=== PATIENT | male | born 1960 | race Hispanic/Latino ===

== ENCOUNTER 2022-06-26 22:17 | Emergency (ER) | payer OTHER ==
[2022-06-26 23:17] LABS: BASOPHILS % (AUTO) 0.7 % (0.0-5.0); EOSINOPHILS % (AUTO) 2.8 % (0.0-8.0); LYMPHOCYTES % (AUTO) 37.1 % (21.0-51.0); MEAN CORPUSCULAR HEMOGLOBIN 31.8 pg (27.0-33.0); MEAN CORPUSCULAR HGB CONC 35.1 g/dL (32.0-36.0); MEAN CORPUSCULAR VOLUME 90.5 fL (79-99); MONOCYTES % (AUTO) 10.9 % (3.0-13.0); NEUTROPHILS % (AUTO) 47.6 % (40.0-77.0); PLATELET COUNT (AUTO) 215 K/uL (130-400); RED BLOOD CELL COUNT(AUTO) 4.75 MIL/uL (4.50-6.20); RED CELL DISTRIBUTION WIDTH 12.3 % (11.0-15.5); WHITE BLOOD COUNT (AUTO) 9.1 K/uL (4.8-10.8)
[2022-06-26 23:34] LABS: CREATININE 0.9 mg/dL (0.5-1.5); POTASSIUM 3.7 mmol/L (3.5-5.1)
[2022-06-26 23:39] LABS: ALBUMIN 3.7 g/dL (3.5-5.0); TOTAL PROTEIN, SERUM 6.8 g/dL (6.0-8.3)
[2022-06-27 01:29] VITALS: BP 128/62
== END 2022-06-27 01:29 | disposition home or self-care (01) ==
LOC: EDH 22:17
DX: M79.602 Pain in left arm (principal); E11.9 Type 2 diabetes mellitus without complications; E78.00 Pure hypercholesterolemia, unspecified; I10 Essential (primary) hypertension; Z79.899 Other long term (current) drug therapy
CPT/HCPCS: 36415; 71046; 80053; 85025; 85378; 93005; 93971

== ENCOUNTER → 2022-09-27 | Outpatient (CLI) | payer OTHER | END | disposition home or self-care (01) | LOC: RAH 13:20 | PROVIDERS: ATTEND Internal Medicine | DX: G45.9 Transient cerebral ischemic attack, unspecified (principal); R42 Dizziness and giddiness | CPT/HCPCS: 93880 ==

== ENCOUNTER → 2025-02-14 | Outpatient (CLI) | payer OTHER ==
[~2025-02-14] MED LIST: IOHEXOL-350 75 ML VIAL IV ONE
--- NOTE | 2025-02-15 10:02 | HMCIMG ---
EXAM: CTA Head and Neck with Intravenous Contrast. CLINICAL HISTORY: Amaurosis fugax. TECHNIQUE: Axial CTA images of the head and neck performed. Coronal and sagittal reformatted images were generated and reviewed. CT scan done according to ALARA (As Low as Reasonably Achievable). COMPARISON: None provided. FINDINGS: Anterior cerebral arteries are unremarkable. Anterior communicating artery is opacified. Middle Cerebral arteries are unremarkable. Posterior cerebral arteries are intact. Vertebral arteries are visualized. Basilar artery is unremarkable. CCA, Carotid Bulb, ICA, and origin of the ECA are well opacified. Jugular veins are well opacified. No evidence of aneurysm (greater than 4 mm) or arteriovenous lesion. Included great vessels of the aortic arch are grossly unremarkable. Included lung apices are grossly unremarkable. No acute bony changes. IMPRESSION: Normal CT angiogram of the neck. /[place]
== END | disposition home or self-care (01) ==
LOC: RAH 09:37
PROVIDERS: ATTEND Internal Medicine
DX: G45.3 Amaurosis fugax (principal)
CPT/HCPCS: 70496; 70498; Q9967

== ENCOUNTER → 2025-02-15 | Outpatient (CLI) | payer OTHER ==
--- NOTE | 2025-02-16 06:49 | HMCIMG ---
EXAMINATION: DUPLEX ULTRASOUND EXAMINATION OF THE BILATERAL CAROTID AND VERTEBRAL ARTERIES. CLINICAL HISTORY: Amaurosis fugax. COMPARISON: CT head and neck dated 02/14/2025. TECHNIQUE: Real-time ultrasound scan of the bilateral carotid and vertebral arteries, 2-D grayscale, with color Doppler flow and spectral waveform analysis. FINDINGS: Color and spectral Doppler interrogation of the carotid vessels on the right demonstrate peak systolic velocities as follows: CCA (Proximal and distal): 93 and 85 cm/s respectively. ECA: 117 cm/s. ICA (Proximal, mid, and distal): 79, 91, and 105 cm/s respectively. Vertebral artery demonstrates antegrade flow: 54 cm/s. Right ICA/CCA ratio: 1.2 Peak systolic velocities on the left are as follows: CCA (Proximal and distal): 122 and 79 cm/s respectively. ECA: 71 cm/s. ICA (Proximal, mid, and distal): 88, 71, and 83 cm/s respectively. Vertebral artery demonstrates antegrade flow: 40 cm/s. Left ICA/CCA ratio: 1.1 Both the common carotid arteries and their branches reveal mild intimal thickening. IMPRESSION: Mild intimal thickening in the bilateral carotid arteries and their branches. There is no significant stenosis or flow limiting lesions. /[place]
== END | disposition home or self-care (01) ==
LOC: RAH 09:53
PROVIDERS: ATTEND Internal Medicine
DX: I65.23 Occlusion and stenosis of bilateral carotid arteries (principal)
CPT/HCPCS: 93880